=== PATIENT | male | born 1940 | race Caucasian/White ===

== ENCOUNTER 2021-05-27 09:57 | Outpatient (REF) | payer MEDICARE, OTHER, SELFPAY ==
--- NOTE | ~2021-05-27 | XR_ITS ---
EXAMINATION: XR CHEST CLINICAL INFORMATION: Pneumonia. COMPARISON: None TECHNIQUE: Two views of the chest were obtained. FINDINGS: The lungs are clear. The cardiomediastinal silhouette is normal in size. There is no pleural effusion or pneumothorax. No acute osseous abnormality. XR/XR chest 2V IMPRESSION: No acute cardiopulmonary findings.
== END 2021-05-27 09:58 | disposition home or self-care (01) ==
LOC: HO.XRAY 09:57
PROVIDERS: PCP Internal Medicine; Visit Provider Internal Medicine
DX: J18.9 Pneumonia, unspecified organism (principal)
CPT/HCPCS: 71046

== ENCOUNTER 2021-11-18 11:08 | Outpatient (REF) | payer MEDICARE, OTHER, SELFPAY ==
[2021-11-18 11:11] LABS: MANUAL DIFF FLAG NO
[2021-11-18 11:18] LABS: Basophils Percent Auto 0.5 % (0-2); Eosinophils Absolute Auto 0.3 X10*3/uL (0.0-0.4); Eosinophils Percent Auto 3.3 % (0-4); Hematocrit 46.1 % (42.0-52.0); Hemoglobin 15.6 g/dl (14.0-18.0); Imm Gran Abs Auto 0.03 X10*3/uL (0.00-0.03); Imm Gran Pct Auto 0.4 % (0.0-0.4); Lymphocytes Absolute Auto 4.6 X10*3/uL (1.2-4.9); Lymphocytes Percent Auto 56.2 % (20-40); Mean Corpuscular HGB Conc 33.8 g/dl (31.0-36.0); Mean Corpuscular Hemoglobin 31.5 pg (27.0-33.0); Mean Corpuscular Volume 92.9 fL (80.0-98.0); Mean Platelet Volume 12.1 fL (9.4-12.4); Monocytes Absolute Auto 0.8 X10*3/uL (0.1-1.2); Monocytes Percent Auto 9.5 % (2-11); Neutrophils Absolute Auto 2.5 x10*3/uL (2.0-8.3); Neutrophils Percent Auto 30.1 % (45-73); Platelet Count 158 X10*3/uL (160-400); Red Blood Count 4.96 X10*6/uL (4.60-5.80); Red Cell Distribution Width 13.4 % (11.0-16.0); White Blood Count 8.1 X10*3/uL (4.8-10.8)
[2021-11-18 11:35] LABS: Estimated Average Glucose 100 mg/dL; Hemoglobin A1c % 5.1 %
[2021-11-18 11:41] LABS: Appearance Urine CLEAR; Color Urine YELLOW; Glucose Urine UA NEG (NEG); Leukocyte Esterase Urine NEG (NEG); Nitrite Urine NEG (NEG); PH 5.5 (5.0-8.0); Specific Gravity - Urine 1.025 (1.005-1.025); Urine Blood 1+ (NEG); Urine Ketones NEG (NEG); Urine Protein NEG (NEG-TRACE)
[2021-11-18 11:58] LABS: Alanine Aminotransferase 20 U/L (0-40); Albumin Level 4.2 g/dL (3.5-5.0); Alkaline Phosphatase 66 U/L (39-117); Anion Gap 14 (12-20); Aspartate Amino Transferase 28 U/L (5-37); Blood Urea Nitrogen 20 mg/dL (9-16); Carbon Dioxide 22 mmol/L (22-29); Chloride 107 mmol/L (96-108); Cholesterol 159 mg/dL; Estimated Glomerular Filt Rate > 60; Glucose Fasting 103 mg/dL (60-99); HDL Cholesterol 36 mg/dL; LDL Cholesterol Calculated 101 mg/dl; Mucus Urine TRACE /LPF; Potassium 4.4 mmol/L (3.3-5.1); RBC Urine 0-2 /HPF (0); Sodium 139 mmol/L (135-145); Total Protein 7.2 g/dL (6.5-8.0); Triglycerides 112 mg/dL; WBC Urine 0-2 /HPF (0-4)
[2021-11-18 12:22] LABS: PSA,Total (Free>4and<10) < 0.05 ng/mL (0.00-4.00)
== END 2021-11-18 11:09 | disposition home or self-care (01) ==
LOC: HO.LNP 11:08
PROVIDERS: Visit Provider Internal Medicine
DX: E78.2 Mixed hyperlipidemia (principal); D72.820 Lymphocytosis (symptomatic); R73.01 Impaired fasting glucose; R31.9 Hematuria, unspecified; Z12.5 Encounter for screening for malignant neoplasm of prostate
CPT/HCPCS: 80053; 80061; 81001; 83036; 84153; 85025

== ENCOUNTER 2022-02-10 10:28 | Outpatient (REF) | payer MEDICARE, OTHER, SELFPAY ==
--- NOTE | ~2022-02-10 | XR_ITS ---
EXAMINATION: XR CERVICAL SPINE CLINICAL INFORMATION: Cervical disease COMPARISON: None TECHNIQUE: 5 views of the cervical spine were obtained. FINDINGS: No acute fracture or subluxation. There is straightening of the normal cervical lordosis. Slight anterolisthesis of C3 on C4 and C4 on C5 which appears degenerative. Associated mild bony neuroforaminal narrowing bilaterally at these levels. There is diffuse facet arthropathy. Mild disc space narrowing of C5-C6 and C6-C7. Endplate osteophytes from the mid to lower cervical spine throughout. The atlantoaxial joint is well aligned. The dens is intact. The prevertebral soft tissues are unremarkable. The visualized lung apices are clear. 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
== END 2022-02-10 10:29 | disposition home or self-care (01) ==
LOC: HO.XRAY 10:28
PROVIDERS: PCP Internal Medicine; Visit Provider Internal Medicine
DX: M50.90 Cervical disc disorder, unspecified, unspecified cervical region (principal)
CPT/HCPCS: 72050

== ENCOUNTER 2022-06-05 11:30 | Outpatient (REF) | payer MEDICARE, OTHER, SELFPAY ==
[2022-06-05 12:02] LABS: Appearance Urine CLEAR; Color Urine YELLOW; Glucose Urine UA NEG (NEG); Leukocyte Esterase Urine NEG (NEG); Nitrite Urine NEG (NEG); PH 5.5 (5.0-8.0); Urine Blood NEG (NEG); Urine Ketones NEG (NEG); Urine Protein NEG (NEG-TRACE)
[2022-06-05 12:20] LABS: Squamous Epithelial Cell Urine TRACE /LPF; WBC Urine 0 /HPF (0-4)
== END 2022-06-05 11:31 | disposition home or self-care (01) ==
LOC: HO.LNP 11:30
PROVIDERS: Visit Provider Internal Medicine
DX: R31.9 Hematuria, unspecified (principal)
CPT/HCPCS: 81001

== ENCOUNTER 2022-09-22 13:24 | Outpatient (REF) | payer MEDICARE, OTHER, SELFPAY ==
--- NOTE | ~2022-09-22 | XR_ITS ---
EXAMINATION: XR CHEST CLINICAL INFORMATION: Cough COMPARISON: 05/27/2021 TECHNIQUE: 2 views of the chest were obtained. FINDINGS: No significant abnormality is noted involving the heart, lungs, mediastinum, bony thorax or soft tissues. Some minimal bibasilar atelectasis is seen, unchanged. XR/XR chest 2V IMPRESSION: No acute intrathoracic disease.
== END 2022-09-22 13:25 | disposition home or self-care (01) ==
LOC: HO.XRAY 13:24
PROVIDERS: Visit Provider Internal Medicine
DX: R05.9 Cough, unspecified (principal)
CPT/HCPCS: 71046

== ENCOUNTER 2022-11-07 15:38 | Outpatient (REF) | payer MEDICARE, OTHER, SELFPAY ==
--- NOTE | ~2022-11-07 | XR_ITS ---
EXAMINATION: XR CHEST CLINICAL INFORMATION: Bilateral renal COMPARISON: None TECHNIQUE: 2 views of the chest were obtained. FINDINGS: The lungs are well-expanded with minimal bibasilar segmental patchy density question atelectasis/developing infiltrates. The heart size and pulmonary vascularity is normal. There is mild spondylosis dorsal spine. No aggressive lytic or sclerotic process seen. XR/XR chest 2V IMPRESSION: Patchy bibasilar atelectasis/developing infiltrates.
== END 2022-11-07 15:39 | disposition home or self-care (01) ==
LOC: HO.XRAY 15:38
PROVIDERS: PCP Internal Medicine; Visit Provider Internal Medicine
DX: R09.89 Other specified symptoms and signs involving the circulatory and respiratory systems (principal)
CPT/HCPCS: 71046

== ENCOUNTER 2022-11-20 10:34 | Outpatient (REF) | payer MEDICARE, OTHER, SELFPAY ==
[2022-11-20 10:38] LABS: MANUAL DIFF FLAG NO
[2022-11-20 11:12] LABS: Basophils Absolute Auto 0.1 X10*3/uL (0.0-0.2); Basophils Percent Auto 0.6 % (0-2); Eosinophils Absolute Auto 0.4 X10*3/uL (0.0-0.4); Eosinophils Percent Auto 4.9 % (0-4); Hemoglobin 14.8 g/dl (14.0-18.0); Imm Gran Abs Auto 0.01 X10*3/uL (0.00-0.03); Imm Gran Pct Auto 0.1 % (0.0-0.4); Mean Corpuscular HGB Conc 34.4 g/dl (31.0-36.0); Mean Corpuscular Volume 92.9 fL (80.0-98.0); Mean Platelet Volume 12.3 fL (9.4-12.4); Monocytes Absolute Auto 0.8 X10*3/uL (0.1-1.2); Monocytes Percent Auto 9.7 % (2-11); Neutrophils Absolute Auto 2.5 x10*3/uL (2.0-8.3); Neutrophils Percent Auto 32.7 % (45-73); Platelet Count 154 X10*3/uL (160-400); Red Blood Count 4.63 X10*6/uL (4.60-5.80); Red Cell Distribution Width 13.2 % (11.0-16.0); White Blood Count 7.7 X10*3/uL (4.8-10.8)
[2022-11-20 11:14] LABS: Appearance Urine Clear; Color Urine Yellow; Glucose Urine UA Negative (Negative); Leukocyte Esterase Urine Negative (Negative); Nitrite Urine Negative (Negative); PH 5.5 (5.0-9.0); Urine Blood Negative (Negative); Urine Ketones Negative (Negative); Urine Protein Negative (Neg-Trace)
[2022-11-20 11:19] LABS: Bacteria Urine None Seen (None Seen); Hyaline Casts Urine 0-2 /LPF (0-2); RBC Urine 0-2 /HPF (0-2); Squamous Epithelial Cell Urine 0-2 /HPF (0-2); WBC Urine 0-5 /HPF (0-5)
[2022-11-20 11:45] LABS: Estimated Average Glucose 94 mg/dL; Hemoglobin A1c % 4.9 %
[2022-11-20 13:08] LABS: Alanine Aminotransferase 19 U/L (0-40); Albumin Level 4.1 g/dL (3.5-5.0); Alkaline Phosphatase 79 U/L (39-117); Anion Gap 13 (12-20); Aspartate Amino Transferase 24 U/L (5-37); Bilirubin Total 0.7 mg/dL (0.0-1.0); Blood Urea Nitrogen 27 mg/dL (9-16); Calcium 8.8 mg/dL (8.4-10.2); Carbon Dioxide 21 mmol/L (22-29); Chloride 108 mmol/L (96-108); Cholesterol 158 mg/dL; Estimated Glomerular Filt Rate > 60; Glucose Fasting 101 mg/dL (60-99); HDL Cholesterol 42 mg/dL; LDL Cholesterol Calculated 89 mg/dl; Potassium 4.1 mmol/L (3.3-5.1); Sodium 138 mmol/L (135-145); Total Protein 6.7 g/dL (6.5-8.0); Triglycerides 135 mg/dL
[2022-11-20 13:37] LABS: PSA,Total (Free>4and<10) < 0.10 ng/mL (0.00-4.00)
== END 2022-11-20 10:35 | disposition home or self-care (01) ==
LOC: HO.LNP 10:34
PROVIDERS: Visit Provider Internal Medicine
DX: E78.2 Mixed hyperlipidemia (principal); D72.820 Lymphocytosis (symptomatic); C61 Malignant neoplasm of prostate; R73.01 Impaired fasting glucose; Z12.5 Encounter for screening for malignant neoplasm of prostate
CPT/HCPCS: 80053; 80061; 81001; 83036; 84153; 85025

== ENCOUNTER 2022-11-25 10:30 | Outpatient (REF) | payer MEDICARE, OTHER, SELFPAY ==
--- NOTE | ~2022-11-25 | XR_ITS ---
EXAMINATION: XR CHEST CLINICAL INFORMATION: Cough COMPARISON: 11/07/2022, 09/22/2022 TECHNIQUE: 2 views of the chest were obtained. FINDINGS: There is increasing left lower lobe opacity partially obscuring the left hemidiaphragm. Normal heart size. Normal pulmonary vascularity. Regional skeleton intact. XR/XR chest 2V IMPRESSION: Increasing left lower lobe opacity now partially obscuring the left hemidiaphragm, concerning for pneumonia in this patient with cough.
== END 2022-11-25 10:31 | disposition home or self-care (01) ==
LOC: HO.XRAY 10:30
PROVIDERS: PCP Internal Medicine; Visit Provider Internal Medicine
DX: R05.9 Cough, unspecified (principal)
CPT/HCPCS: 71046

== ENCOUNTER 2022-12-15 09:30 | Outpatient (REF) | payer MEDICARE, OTHER, SELFPAY ==
--- NOTE | ~2022-12-15 | XR_ITS ---
EXAMINATION: XR CHEST CLINICAL INFORMATION: Pneumonia, left lobe COMPARISON: 11/25/2022 TECHNIQUE: 2 views of the chest were obtained. FINDINGS: The lungs are well expanded. There is no focal consolidation, edema, or effusion. No pneumothorax. The cardiomediastinal silhouette is within normal limits. No acute osseous abnormality. XR/XR chest 2V IMPRESSION: Clear lungs.
== END 2022-12-15 09:31 | disposition home or self-care (01) ==
LOC: HO.XRAY 09:30
PROVIDERS: PCP Internal Medicine; Visit Provider Internal Medicine
DX: J18.9 Pneumonia, unspecified organism (principal)
CPT/HCPCS: 71046

== ENCOUNTER 2022-12-23 12:34 | Outpatient (REF) | payer MEDICARE, OTHER, SELFPAY ==
[2022-12-23 13:47] LABS: Blood Urea Nitrogen 22 mg/dL (9-16); Estimated Glomerular Filt Rate > 60
== END 2022-12-23 12:35 | disposition home or self-care (01) ==
LOC: HO.LNP 12:34
PROVIDERS: Visit Provider Internal Medicine
DX: R79.9 Abnormal finding of blood chemistry, unspecified (principal)
CPT/HCPCS: 82565; 84520

== ENCOUNTER 2023-11-20 10:44 | Outpatient (REF) | payer MEDICARE, OTHER, SELFPAY ==
[2023-11-20 11:00] LABS: Estimated Average Glucose 97 mg/dL
[2023-11-20 11:01] LABS: Appearance Urine Clear; Color Urine Yellow; Glucose Urine UA Negative (Negative); Leukocyte Esterase Urine Negative (Negative); Nitrite Urine Negative (Negative); Specific Gravity - Urine <= 1.005 (1.005-1.025); UMIC TRIGGER UACC YES; Urine Blood Small (1+) (Negative); Urine Ketones Negative (Negative); Urine Protein Negative (Neg-Trace)
[2023-11-20 11:11] LABS: Bacteria Urine None Seen (None Seen); Hyaline Casts Urine 0-2 /LPF (0-2); RBC Urine 0-2 /HPF (0-2); Squamous Epithelial Cell Urine 0-2 /HPF (0-2); WBC Urine 0-5 /HPF (0-5)
[2023-11-20 11:54] LABS: Cholesterol 173 mg/dL (<200); HDL Cholesterol 42 mg/dL (>40); LDL Cholesterol Calculated 110 mg/dL (<100); Triglycerides 109 mg/dL (<150)
[2023-11-20 12:13] LABS: PSA,Total (Free>4and<10) < 0.10 ng/mL (0.00-4.00)
== END 2023-11-20 10:45 | disposition home or self-care (01) ==
LOC: HO.LNP 10:44
PROVIDERS: Visit Provider Internal Medicine
DX: E78.2 Mixed hyperlipidemia (principal); D72.820 Lymphocytosis (symptomatic); R73.01 Impaired fasting glucose; Z12.5 Encounter for screening for malignant neoplasm of prostate
CPT/HCPCS: 80061; 81001; 83036; 84153

== ENCOUNTER 2024-05-30 10:24 | Outpatient (REF) | payer MEDICARE, OTHER, SELFPAY ==
[2024-05-30 11:07] LABS: Free T4 (Free Thyroxine) 0.89 ng/dL (0.71-1.85); TSH reflex Free T4 2.96 uIU/mL (0.32-4.0)
[2024-05-31 09:58] LABS: Triiodothyronine T3 Free 2.7 pg/mL (2.3-4.2)
[2024-06-06 12:43] LABS: Testosterone, Free 34.7 pg/mL (30.0-135.0); Testosterone, Total 243 ng/dL (250-1100)
== END 2024-05-30 10:25 | disposition home or self-care (01) ==
LOC: HO.LNP 10:24
PROVIDERS: Visit Provider Internal Medicine
DX: R68.89 Other general symptoms and signs (principal)
CPT/HCPCS: 84402; 84403; 84439; 84443; 84481